=== PATIENT | female | born 1990 | race Caucasian/White ===

== ENCOUNTER 2019-07-28 20:38 | Inpatient (IN) | payer BC ==
[~2019-07-28] VITALS: Ht 175.3 cm; Wt 84.8 kg
[2019-07-28] MEDS ORDERED: DINOPROSTONE 10 MG SUPP VG ONE (20:45)
[2019-07-28] MEDS ORDERED: TERBUTALINE SULFATE 1 MG/ML VIAL SUBCUT ONE (20:45)
[2019-07-28 21:11] VITALS: BP_SYST 117
[2019-07-28 21:25] LABS: BASOPHILS % (AUTO) 0.2 % (0.0-2.0); EOSINOPHILS # (AUTO) 0.1 K/uL (0.0-0.4); HEMATOCRIT 33.6 % (36-48); HEMOGLOBIN 11.8 g/dL (12.0-16.0); LYMPHOCYTES # (AUTO) 1.8 K/uL (1.0-5.5); LYMPHOCYTES % (AUTO) 17.4 % (20.5-51.5); MEAN CORPUSCULAR HEMOGLOBIN 34 pg (27-31); MEAN CORPUSCULAR HGB CONC 35 % (32-36); MEAN CORPUSCULAR VOLUME 97 fL (79.0-98.0); MONOCYTES # (AUTO) 0.7 K/uL (0.0-1.0); MONOCYTES % (AUTO) 6.9 % (1.7-9.3); NEUTROPHILS # (AUTO) 7.8 K/uL (1.8-7.7); NEUTROPHILS % (AUTO) 74.5 % (40.0-70.0); PLATELET COUNT (AUTO) 251 K/uL (130-430); RED BLOOD CELL COUNT(AUTO) 3.47 MIL/uL (4.2-6.2); RED CELL DISTRIBUTION WIDTH 14.4 % (9.0-15.0); WHITE BLOOD COUNT (AUTO) 10.5 K/uL (4.8-10.8)
[2019-07-28] MEDS ORDERED: TEMAZEPAM 15 MG CAPSULE PO PRN (22:15)
[2019-07-28] MEDS ORDERED: OXYTOCIN/0.9 % SODIUM CHLORIDE 1,000 ML IV SCH (22:17)
[2019-07-29] MEDS: LR 1,000 ML IV SCH ×2 (02:50→06:20)
[2019-07-29] MEDS: MORPHINE 4 MG/ML INJ. SYRINGE IVP PRN ×2 (03:18→07:59)
[2019-07-29] MEDS ORDERED: MORPHINE SULFATE 10 MG/ML VIAL ONE ×2 (03:28→07:50)
[2019-07-29] MEDS ORDERED: MORPHINE SULFATE 10 MG/ML VIAL IVP PRN (13:27)
[2019-07-29] MEDS ORDERED: ROPIVACAINE HCL/PF 0.2% 0 ML ONE (13:36)
[2019-07-29] MEDS ORDERED: fentaNYL CITRATE/PF 100 MCG/2 ML AMP ONE ×2 (13:36→22:39)
[2019-07-29] MEDS ORDERED: ONDANSETRON HCL 4 MG/2 ML VIAL IVP PRN (20:00)
[2019-07-29] MEDS ORDERED: ONDANSETRON HCL 4 MG/2 ML VIAL ONE (20:01)
[2019-07-29] MEDS ORDERED: TEMAZEPAM 15 MG CAPSULE PO PRN (21:00)
[2019-07-29] MEDS ORDERED: LR 500 ML IV ONE (22:36)
[2019-07-29] MEDS ORDERED: ROPIVACAINE HCL/PF 0.2% 200 ML ONE (22:40)
[2019-07-29] MEDS ORDERED: FENT2mCg/mL-ROPIVA0.2%/NS EPID 200 ML EP SCH (22:45)
[2019-07-29] MEDS ORDERED: OXYTOCIN/0.9 % SODIUM CHLORIDE 1,000 ML IV ONE (23:21)
[2019-07-29] MEDS ORDERED: OXYTOCIN/0.9 % SODIUM CHLORIDE 1,000 ML IV SCH (23:21)
[2019-07-29] MEDS ORDERED: ANUSOL 1 EA SUPP.RECT (PREPARATION H) RC PRN (23:30)
[2019-07-29] MEDS ORDERED: SENNOSIDES/DOCUSATE SODIUM 1 TAB TABLET(SENOKOT-S) PO PRN (23:30)
[2019-07-29] MEDS ORDERED: DIPH-TET-PERTUS Vaccine 0.5 ML VIAL (ADACEL) I.M. PRN (23:30)
[2019-07-29] MEDS ORDERED: METHYLERGONOVINE MALEATE 0.2 MG TABLET PO PRN (23:30)
[2019-07-29] MEDS ORDERED: DERMOPLAST SPRAY TP PRN (23:30)
[2019-07-29] MEDS ORDERED: WITCH HAZEL LEAF 1 MED.PAD MED.PAD TP PRN (23:30)
[2019-07-29] MEDS ORDERED: HYDROCORTISONE 0.5%, 28.35 GM TOPICAL CREAM TP PRN (23:30)
[2019-07-29] MEDS ORDERED: RHO(D) IMMUNE GLOBULIN/MALTOSE 1500 UNITS/1.3 ML (WINHRO) IM PRN (23:30)
[2019-07-29] MEDS ORDERED: OXYCODONE/ACETAMINOPHEN 5-325 TABLET PO PRN ×2 (23:30)
[2019-07-29] MEDS ORDERED: MEASLES,MUMPS&RUBELLA VACC/PF 12500 UNIT/0.5 ML VIAL SUBQ PRN (23:30)
[2019-07-29] MEDS ORDERED: LANOLIN 7 GM OINT. TP PRN (23:30)
[2019-07-30] MEDS: IBUPROFEN 600 MG TABLET PO SCH ×3 (03:00→17:48)
[2019-07-30 06:53] LABS: BASOPHILS % (AUTO) 0.2 % (0.0-2.0); EOSINOPHILS # (AUTO) 0.1 K/uL (0.0-0.4); EOSINOPHILS % (AUTO) 0.4 % (0.0-4.0); HEMATOCRIT 35.1 % (36-48); LYMPHOCYTES # (AUTO) 1.5 K/uL (1.0-5.5); LYMPHOCYTES % (AUTO) 7.7 % (20.5-51.5); MEAN CORPUSCULAR HEMOGLOBIN 33 pg (27-31); MEAN CORPUSCULAR HGB CONC 34 % (32-36); MEAN CORPUSCULAR VOLUME 98 fL (79.0-98.0); MONOCYTES % (AUTO) 5.2 % (1.7-9.3); NEUTROPHILS # (AUTO) 17.1 K/uL (1.8-7.7); PLATELET COUNT (AUTO) 222 K/uL (130-430); RED BLOOD CELL COUNT(AUTO) 3.59 MIL/uL (4.2-6.2); RED CELL DISTRIBUTION WIDTH 14.3 % (9.0-15.0); WHITE BLOOD COUNT (AUTO) 19.8 K/uL (4.8-10.8)
[2019-07-30] MEDS: DOCUSATE SODIUM 100 MG CAPSULE PO PRN (10:24)
[2019-07-30] MEDS: HYDROcodone/ACETAMIN 5-325 MG TAB (NORCO/ VICODIN) PO PRN ×3 (10:24→20:11)
[2019-07-30 10:36] LABS: NEUTROPHILS % (AUTO) 86.5 % (40.0-70.0)
[2019-07-30] MEDS ORDERED: MINERAL OIL 30 ML UDC PO ONE (11:28)
[2019-07-31] MEDS: IBUPROFEN 600 MG TABLET PO SCH ×4 (00:15→18:00)
[2019-07-31] MEDS: HYDROcodone/ACETAMIN 5-325 MG TAB (NORCO/ VICODIN) PO PRN ×4 (00:16→15:54)
[2019-07-31] MEDS: DOCUSATE SODIUM 100 MG CAPSULE PO PRN ×2 (00:17→21:32)
[2019-07-31] MEDS ORDERED: HYDROcodone/ACETAMIN 5-325 MG TAB (NORCO/ VICODIN) PO ONE (21:15)
== END 2019-07-31 22:00 | disposition home or self-care (01) | DRG 807 ==
LOC: SPU 20:38
PROVIDERS: ADMIT Specialist; ATTEND Specialist
PROC: 10E0XZZ Delivery of Products of Conception, External Approach (ICD-10-PCS; principal; 2019-07-29)
PROC: 3E0P7VZ Introduction of Hormone into Female Reproductive, Via Natural or Artificial Opening (ICD-10-PCS; 2019-07-29)
PROC: 3E0R3BZ Introduction of Anesthetic Agent into Spinal Canal, Percutaneous Approach (ICD-10-PCS; 2019-07-29)
PROC: 00HU33Z Insertion of Infusion Device into Spinal Canal, Percutaneous Approach (ICD-10-PCS; 2019-07-29)
DX: O69.89X0 Labor and delivery complicated by other cord complications, not applicable or unspecified (principal); Z37.0 Single live birth; Z3A.39 39 weeks gestation of pregnancy
CPT/HCPCS: 36415; 85025; 86886; 86900; 86901; J2270; J2405; J2590; J3010; J7120

== ENCOUNTER 2022-05-13 12:08 | Day surgery (SDC) | payer BC ==
[~2022-05-13] VITALS: Ht 180.3 cm; Wt 81.6 kg
[2022-05-13 12:10] LABS: BILIRUBIN,URINE NEGATIVE (NEGATIVE); BLOOD, URINE 3+ (NEGATIVE); COLOR,URINE YELLOW (YELLOW); GLUCOSE,URINE NEGATIVE (NEGATIVE); KETONES,URINE NEGATIVE (NEGATIVE); LEUKOCYTE ESTERASE ,URINE NEGATIVE (NEGATIVE); NITRITE, URINE NEGATIVE (NEGATIVE); PROTEIN URINE TRACE (NEGATIVE)
[2022-05-13 12:13] LABS: CLARITY/URINE SLIGHTLY HAZY (CLEAR)
[2022-05-13 12:14] LABS: HCG,QUAL RESULT NEGATIVE (NEGATIVE)
[2022-05-13 12:18] LABS: BACTERIA,URINE RARE /HPF (None Seen); WBC,URINE 0-3 /HPF (0-3)
[2022-05-13 12:25] LABS: BASOPHILS % (AUTO) 0.2 % (0.0-2.0); EOSINOPHILS # (AUTO) 0.2 K/uL (0.0-0.4); EOSINOPHILS % (AUTO) 4.1 % (0.0-4.0); HEMOGLOBIN 11.6 g/dL (12.0-16.0); LYMPHOCYTES % (AUTO) 17.5 % (20.5-51.5); MEAN CORPUSCULAR HEMOGLOBIN 32 pg (27-31); MEAN CORPUSCULAR HGB CONC 35 % (32-36); MEAN CORPUSCULAR VOLUME 91 fL (79.0-98.0); MONOCYTES # (AUTO) 0.4 K/uL (0.0-1.0); MONOCYTES % (AUTO) 7.8 % (1.7-9.3); NEUTROPHILS # (AUTO) 3.9 K/uL (1.8-7.7); NEUTROPHILS % (AUTO) 70.4 % (40.0-70.0); PLATELET COUNT (AUTO) 279 K/uL (130-430); RED BLOOD CELL COUNT(AUTO) 3.61 MIL/uL (4.2-6.2); RED CELL DISTRIBUTION WIDTH 13.6 % (9.0-15.0); WHITE BLOOD COUNT (AUTO) 5.5 K/uL (4.8-10.8)
[2022-05-13] MEDS ORDERED: METOCLOPRAMIDE HCL 10 MG/2 ML VIAL ONE (13:10)
[2022-05-13] MEDS ORDERED: NS 1000 ML IV.SOLN IV ONE (13:10)
[2022-05-13] MEDS ORDERED: GLYCOPYRROLATE 0.2 MG/ML VIAL ONE (13:10)
[2022-05-13] MEDS ORDERED: LR 1,000 ML IV.SOLN IV ONE (13:10)
[2022-05-13] MEDS ORDERED: KETOROLAC TROMETHAMINE 30 MG VIAL ONE (13:10)
[2022-05-13] MEDS ORDERED: ONDANSETRON HCL 4 MG/2 ML VIAL ONE (13:10)
[2022-05-13] MEDS ORDERED: MIDAZOLAM HCL 2 MG/2 ML VIAL (VERSED) ONE (13:10)
[2022-05-13] MEDS ORDERED: PROPOFOL 200MG/ 20ML VIAL (DIPRIVAN) IV ONE (13:10)
[2022-05-13] MEDS ORDERED: ceFAZolin SODIUM 1 GM VIAL ONE (13:10)
[2022-05-13] MEDS ORDERED: SEVOFLURANE 15 MIN GAS INH ONE (13:10)
[2022-05-13] MEDS ORDERED: LIDOCAINE 2%, 20 ML MDV ONE (13:10)
[2022-05-13] MEDS ORDERED: NS IRRIG SOLN 1000 ML IR ONE (13:10)
[2022-05-13] MEDS ORDERED: fentaNYL CITRATE/PF 100 MCG/2 ML AMP ONE (13:10)
[2022-05-13] MEDS ORDERED: HYDROmorphone 1 MG/ML INJ. CARTRIDGE IVP PRN (13:30)
[2022-05-13] MEDS ORDERED: HYDROmorphone 2 MG/ML VIAL IVP PRN (13:30)
[2022-05-13] MEDS ORDERED: LR 1,000 ML IV SCH (13:30)
[2022-05-13] MEDS ORDERED: KETOROLAC TROMETHAMINE 30 MG VIAL IVP PRN (13:30)
[2022-05-13] MEDS ORDERED: ONDANSETRON HCL 4 MG/2 ML VIAL IVP PRN ×2 (13:30→14:00)
[2022-05-13] MEDS ORDERED: KETOROLAC TROMETHAMINE 60 MG/2 ML VIAL IM ONE (14:00)
[2022-05-13] MEDS ORDERED: HYDROmorphone 1 MG/ML INJ. CARTRIDGE ONE (14:31)
[2022-05-13 17:22] VITALS: BP_SYST 117
== END 2022-05-13 16:25 | disposition home or self-care (01) ==
LOC: SDS 12:08
PROVIDERS: ATTEND Specialist
DX: N93.8 Other specified abnormal uterine and vaginal bleeding (principal); N84.0 Polyp of corpus uteri; Z20.822 Contact with and (suspected) exposure to COVID-19
CPT/HCPCS: 58558; 81000; 84703; 85025; 36415; 88305; 87426; J0690; J3490; J1885 ×2; J2001; J2765; J3465; J2405; J2704; J3010; J1170; J7120; J7030